=== PATIENT | female | born 1960 | race Caucasian/White ===

== ENCOUNTER 2018-09-16 04:59 | Inpatient (IN) | payer OTHER ==
[2018-09-16] MEDS ORDERED: INSULIN REG, HUMAN 100 UNIT/ML 3 ML VIAL (PYX) SUBCUT ONE ×3 (05:31→23:00)
[2018-09-16] MEDS ORDERED: FENTANYL CITRATE INJ/PF 100 MCG/2 ML AMPUL IV ONE (05:31)
[2018-09-16 05:40] LABS: HEMATOCRIT 21.5 % (36.0-47.0); MEAN CORPUSCULAR HEMOGLOBIN 21.1 pg (27.0-33.4); MEAN CORPUSCULAR HGB CONC 28.6 g/dL (32.0-36.0); MEAN CORPUSCULAR VOLUME 74 fl (80-97); RED CELL DISTRIBUTION WIDTH 25.6 % (11.5-14.0); WHITE BLOOD COUNT 9.8 10^3/uL (4.0-10.5)
[2018-09-16 05:43] LABS: ALANINE AMINOTRANSFERASE 20 U/L (9-52); ALBUMIN 2.8 g/dL (3.5-5.0); ALKALINE PHOSPHATASE 92 U/L (38-126); ANION GAP 13 (5-19); ASPARTATE AMINO TRANSFERASE 20 U/L (14-36); BILIRUBIN,DIRECT 0.3 mg/dL (0.0-0.4); BILIRUBIN,TOTAL 0.6 mg/dL (0.2-1.3); BLOOD UREA NITROGEN 33 mg/dL (7-20); CALCIUM 8.2 mg/dL (8.4-10.2); CARBON DIOXIDE 25 mmol/L (22-30); CHLORIDE 101 mmol/L (98-107); POTASSIUM 4.8 mmol/L (3.6-5.0); TOTAL PROTEIN 5.1 g/dL (6.3-8.2)
[2018-09-16 05:53] LABS: GLUCOSE 407 mg/dL (75-110)
[2018-09-16 06:11] LABS: PLATELET COUNT 45 10^3/uL (150-450)
[2018-09-16 06:17] LABS: ABSOLUTE LYMPHOCYTES# (MANUAL) 2.5 10^3/uL (0.5-4.7); ABSOLUTE MONOCYTES # (MANUAL) 2.6 10^3/uL (0.1-1.4); BAND NEUTROPHILS % (MANUAL) 1 % (3-5); BASOPHILS % (MANUAL) 0 % (0-2); EOSINOPHILS % (MANUAL) 0 % (0-6); LYMPHOCYTES % (MANUAL) 17 % (13-45); MONOCYTES % (MANUAL) 27 % (3-13); NUCLEATED RED BLOOD CELLS 5 /100 WBC (0); SEGMENTED NEUTROPHILS % (MAN) 28 % (42-78); TOTAL CELLS COUNTED 100
--- NOTE | 2018-09-16 06:18 | RADIOLOGY REPORT (SQ) ---
EXAM DESCRIPTION: X-ray single view chest. CLINICAL HISTORY: 58 years Female, chest pain COMPARISON: 07/29/2015 TECHNIQUE: Single portable view of the chest performed on 09/16/2018 at 5:48 AM FINDINGS: The lungs are well expanded and are clear. There is no evidence of a pneumothorax. The cardiac silhouette is normal in size and configuration. The mediastinal contours are normal. No acute osseous abnormality is identified. There are remote postsurgical changes of the lower cervical spine. No focal soft tissue abnormalities are seen. Lines and tubes: None. There are overlying teletypesetter monitor leads. IMPRESSION: No evidence of acute intrathoracic disease. No significant change since the prior study.
[2018-09-16 06:20] LABS: ANISOCYTOSIS 3+; HYPOCHROMASIA 1+; PLATELET COMMENT DECREASED; POIKILOCYTOSIS 1+; POLYCHROMASIA 1+; TOXIC GRANULATION SLIGHT; TOXIC VACUOLATION PRESENT
[2018-09-16 06:24] LABS: IMMATURE MONONUCLEAR% (MANUAL) 7 % (0); METAMYELOCYTES % (MANUAL) 6 % (0); MYELOCYTES % (MANUAL) 4 % (0); PROMYELOCYTES % (MANUAL) 2 % (0)
[2018-09-16 06:26] LABS: HEMOGLOBIN 6.1 g/dL (12.0-15.5)
[2018-09-16] MEDS ORDERED: ONDANSETRON HCL INJ/PF 4 MG/2 ML SDV IV ONE (06:36)
[2018-09-16] MEDS ORDERED: MORPHINE SULFATE 10 MG/ML INJ IV ONE ×2 (06:36→09:15)
--- NOTE | 2018-09-16 07:46 | EKG REPORT ---
SEVERITY:- NORMAL ECG - SINUS RHYTHM : Confirmed by: Guillaume Victor MD 16-Sep-2018 07:45:25
[2018-09-16] MEDS ORDERED: NORMAL SALINE 250 ML IV PRN (07:54)
[2018-09-16 08:21] LABS: RETICULOCYTE COUNT (AUTO) 2.75 % (0.66-2.85)
[2018-09-16 08:34] LABS: IRON(TIBC) 13.8 ug/dL (37-170)
--- NOTE | 2018-09-16 08:44 | PDOC CONSULTATION ---
Consultation Consult Date: 09/16/18 Consult reason:: Hematology/Oncology consultation was requested for patient with pancytopenia and history of essential thrombocytosis. History of Present Illness Admission Date/PCP: Burt BRODY History of Present Illness: LILIA CHAPA is a 58 year old female who was diagnosed with JAK2 negative Essential thrombocythemia in 2010. She underwent bone marrow biopsies in 03/2017 and 01/2018 both of which showed essential thrombocythemia with increased blasts (5% or less). She was started on Hydrea in 2011 and had been maintained on this with good results. On 08/15/2018 her CBC showed WBC 6.0, HGB 8.1 and PLT 386. Ferritin was 545. In 2017, she began having recurrent fevers and moving joint/bone pains. She was also found to have a splenic hypodensity. She has been referred to rheumatology for further testing, but has not been able to see them yet. She presented to the ED with 24 hour history of severe chest pain and dyspnea. No nausea, but "fullness" in her stomach. No dysuria. Morphine has not yet helped her pain. Her CBC today shows pancytopenia with immature forms. Past Medical History Cardiac Medical History: Reports: Hyperlipidema, Hypertension Denies: Coronary Artery Disease, Myocardial Infarction Pulmonary Medical History: Denies: Asthma, Bronchitis, Chronic Obstructive Pulmonary Disease (COPD), Pneumonia Neurological Medical History: Denies: Seizures Endocrine Medical History: Reports: Diabetes Mellitus Type 2 Musculoskeltal Medical History: Denies: Arthritis Hematology: Reports: Anemia Past Surgical History Past Surgical History: Reports: Section, Cholecystectomy, Orthopedic Surgery - neck, Other - Partial hemicolectomy for suspicious polyps Social History Lives with: Spouse/Significant other Smoking Status: Current Every Day Smoker Amount of Alcoholic Beverages Per Day: None for 20 years Hx Recreational Drug Use: No Past Social History Note: with 3 kids. Family History Family History: None Parental Family History Reviewed: Yes - Paternal GF with cancer. Mother still living. Father Children Family History Reviewed: No Sibling(s) Family History Reviewed.: Yes Medication/Allergy Home Medications: Aspirin [Aspirin EC] 81 mg PO QHS 05/21/17 Atorvastatin Calcium [Lipitor 40 mg Tablet] 40 mg PO QHS 05/21/17 Ferrous Sulfate [Ferosul] 325 mg PO QHS 05/21/17 Hydroxyurea 4 tab PO QHS 05/21/17 Insulin Aspart [Novolog Flexpen] 0 unit SUBCUT .SLD SCALE 05/21/17 Insulin Glargine,Hum.rec.anlog [Lantus] 55 unit SQ QHS 05/21/17 Iron/C/Folic Acd/Mv Cmb11/Calc [Ferrex 28 Tablet] 1 each PO QHS 05/21/17 Omeprazole 40 mg PO QHS 05/21/17 Telmisartan [Micardis] 80 mg PO QHS 05/21/17 Tramadol HCl 1 - 2 tab PO PRN PRN 05/21/17 Verapamil HCl [Verelan] 120 mg PO QHS 05/21/17 Allergies/Adverse Reactions: NSAIDS (Non-Steroidal Anti-Inflamma [Nsaids] Allergy (Verified 05/21/17 11:24) Difficulty breathing Review of Systems Constitutional: PRESENT: fever(s). ABSENT: weight gain, weight loss Eyes: ABSENT: visual disturbances Ears: ABSENT: hearing changes Nose, Mouth, and Throat: ABSENT: sore throat Cardiovascular: PRESENT: chest pain Respiratory: PRESENT: dyspnea Gastrointestinal: PRESENT: abdominal pain. ABSENT: constipation, vomiting Genitourinary: ABSENT: dysuria, hematuria Musculoskeletal: PRESENT: back pain Integumentary: ABSENT: rash Neurological: PRESENT: weakness Physical Exam Vital Signs: Temp Pulse Resp BP Pulse Ox 98.4 F 92 29 H 112/65 97 09/16/18 04:59 09/16/18 04:59 09/16/18 08:00 09/16/18 08:00 09/16/18 08:00 Intake & Output 09/15/18 09/16/18 09/17/18 06:59 06:59 06:59 Weight 68.492 kg General appearance: PRESENT: well-developed, well-nourished Exam: 58 year old female. Head exam: PRESENT: atraumatic, normocephalic Eye exam: PRESENT: EOMI Mouth exam: PRESENT: tongue midline Neck exam: ABSENT: lymphadenopathy, tenderness Respiratory exam: PRESENT: clear to auscultation svetlana, unlabored Cardiovascular exam: PRESENT: RRR GI/Abdominal exam: PRESENT: soft. ABSENT: tenderness Extremities exam: ABSENT: pedal edema Neurological exam: PRESENT: alert, awake Psychiatric exam: PRESENT: appropriate affect Skin exam: PRESENT: normal color Results Laboratory Results: 09/16/18 05:04 09/16/18 05:04 09/16/18 09/16/18 09/16/18 05:04 05:04 05:04 WBC 9.8 RBC 2.90 L Hgb 6.1 L Hct 21.5 L MCV 74 L MCH 21.1 L MCHC 28.6 L RDW 25.6 H Plt Count 45 L Seg Neutrophils % Not Reportable Lymphocytes % Not Reportable Monocytes % Not Reportable Eosinophils % Not Reportable Basophils % Not Reportable Absolute Neutrophils Not Reportable Absolute Lymphocytes Not Reportable Absolute Monocytes Not Reportable Absolute Eosinophils Not Reportable Absolute Basophils Not Reportable Retic Count (auto) Absolute Retic Sodium 139.0 Potassium 4.8 Chloride 101 Carbon Dioxide 25 Anion Gap 13 BUN 33 H Creatinine 0.72 Est GFR ( Amer) > 60 Est GFR (Non-Af Amer) > 60 Glucose 407 H* Calcium 8.2 L Total Bilirubin 0.6 AST 20 ALT 20 Alkaline Phosphatase 92 C-Reactive Protein 330.4 H Total Protein 5.1 L Albumin 2.8 L Blood Type Antibody Screen 09/16/18 09/16/18 05:04 05:50 WBC RBC Hgb Hct MCV MCH MCHC RDW Plt Count Seg Neutrophils % Lymphocytes % Monocytes % Eosinophils % Basophils % Absolute Neutrophils Absolute Lymphocytes Absolute Monocytes Absolute Eosinophils Absolute Basophils Retic Count (auto) 2.75 Absolute Retic 0.070 Sodium Potassium Chloride Carbon Dioxide Anion Gap BUN Creatinine Est GFR ( Amer) Est GFR (Non-Af Amer) Glucose Calcium Total Bilirubin AST ALT Alkaline Phosphatase C-Reactive Protein Total Protein Albumin Blood Type A POSITIVE Antibody Screen NEGATIVE 09/16/18 05:04 Troponin I 0.039 Impressions: Chest X-Ray 09/16/18 05:31 IMPRESSION: No evidence of acute intrathoracic disease. No significant change since the prior study. Assessment & Plan - Diagnosis (1) Pancytopenia Is this a current diagnosis for this admission?: Yes Plan: New. I examined peripheral blood smear and there were microcytic RBCs with moderate poikilocytosis, some schistocytes. WBCs with Immature forms and possible blasts. nucleated RBCs. Will transfuse 2 units pRBC. Patient needs bone marrow biopsy. I will check for severe B12 deficiency as well. I am concerned that this could be acute leukemia evolved from her thrombocythemia. I strongly recommend transfer to [facility] for Bone Marrow, as we would not be able to have results for 5-7 days from this procedure. HOLD hydrea. (2) Fever Is this a current diagnosis for this admission?: Yes Plan: Fever of unknown origin going on since May. Infectious disease consult would be very helpful. We do not have this available here. Again, transfer to [facility] urgently would help with this. Will check STEFANIE, RF, ESR. Her CRP is quite high. (3) Chest pain Is this a current diagnosis for this admission?: Yes Plan: EKG was normal. She has been given morphine for the pain. Hopefully the blood transfusion will help this. - Plan Summary Plan Summary: I will continue to follow her here, but hopefully, Heme/Onc bed will be found at [facility] today.
[2018-09-16 09:39] LABS: PHOSPHORUS 4.8 mg/dL (2.5-4.5); URIC ACID 6.9 mg/dL (2.5-7.5)
[2018-09-16 09:42] LABS: APPEARANCE,URINE SLIGHTLY-CLOUDY; BILIRUBIN,URINE NEGATIVE (NEGATIVE); COLOR,URINE YELLOW; GLUCOSE, URINE >=500 mg/dL (NEGATIVE); KETONES,URINE 20 mg/dL (NEGATIVE); LEUKOCYTE ESTERASE,URINE NEGATIVE (NEGATIVE); NITRITE,URINE NEGATIVE (NEGATIVE); PROTEIN,URINE NEGATIVE (NEGATIVE); UROBILINOGEN,URINE NEGATIVE mg/dL (<2.0)
[2018-09-16 09:43] LABS: FOLATE > 20.00 ng/mL (>2.76)
[2018-09-16 09:50] LABS: INTERNATIONAL RATION (INR) 1.14; PROTHROMBIN TIME 15.2 SEC (11.4-15.4)
[2018-09-16] MEDS ORDERED: ONDANSETRON HCL INJ/PF 4 MG/2 ML SDV IV PRN (11:54)
[2018-09-16] MEDS ORDERED: ALBUTEROL SULFATE 0.083% NEB 2.5 MG/3 ML AMPUL NEB PRN (11:54)
[2018-09-16] MEDS ORDERED: VANCOMYCIN HCL 0 MG in DEXTROSE 5%-WATER 250 ML IV NR (12:15)
[2018-09-16] MEDS: ACETAMINOPHEN 325 MG TABLET PO PRN (12:23)
--- NOTE | 2018-09-16 13:18 | Operative Report ---
Operative Report DATE OF SURGERY: 09/16/18 Operative Report: After informed consent was obtained, patient was prepped and draped in sterile fashion. Left posterior iliac crest was anesthetized using plain lidocaine. Bone marrow aspirate was obtained with Jamshidi aspirate needle followed by core biopsy using Jamshidi biopsy needle. Patient tolerated the procedure well with only some pain. No excessive bleeding was seen. Sterile pressure dressing was applied. PREOPERATIVE DIAGNOSIS: pancytopenia POSTOPERATIVE DIAGNOSIS: pancytopenia OPERATION: Bone Marrow aspiration and biopsy SURGEON: AISSATOU BARRON ANESTHESIA: Local - 10 cc 1% plain lidocaine TISSUE REMOVED OR ALTERED: core biopsy and 5 mL aspirate COMPLICATIONS: There were no immediate complications. ESTIMATED BLOOD LOSS: None
[2018-09-16] MEDS ORDERED: METHYLPREDNISOLONE INJ 40 MG/1 ML SDV IV ONE (13:56)
[2018-09-16] MEDS ORDERED: VANCOMYCIN HCL 1,500 MG in DEXTROSE 5%-WATER 250 ML IV ONE (14:00)
[2018-09-16] MEDS ORDERED: INSULIN LISPRO 100 UNIT/ML 3 ML VIAL SUBCUT ONE (15:25)
[2018-09-16] MEDS ORDERED: DEXTROSE 40% GEL 15 GM TUBE PO PRN ×2 (15:25)
[2018-09-16] MEDS ORDERED: GLUCAGON,HUMAN RECOMB 1 MG INJ IM PRN (15:25)
[2018-09-16] MEDS ORDERED: DEXTROSE 50%-WATER 25 GM/50 ML DISP.SYRIN IV PRN ×2 (15:25)
[2018-09-16] MEDS ORDERED: INSULIN LISPRO 100 UNIT/ML 3 ML VIAL SUBCUT SCH (16:00)
[2018-09-16] MEDS: MEROPENEM 500 MG in NORMAL SALINE 50 ML IV SCH ×2 (16:29→22:06)
[2018-09-16] MEDS: HYDROMORPHONE HCL INJ/PF 2 MG/ML AMPULE IV PRN (18:22)
[2018-09-16] MEDS: LANSOPRAZOLE 15 MG TAB.RAP.DR PO SCH (20:24)
[2018-09-16] MEDS ORDERED: LOSARTAN POTASSIUM 50 MG TABLET PO SCH (22:00)
[2018-09-16] MEDS ORDERED: VERAPAMIL HCL 120 MG TABLET.SA PO SCH (22:00)
[2018-09-16] MEDS ORDERED: FERROUS SULFATE 325 MG TABLET PO SCH (22:00)
[2018-09-16] MEDS ORDERED: VANCOMYCIN HCL 1,500 MG in NORMAL SALINE 250 ML IV ONE (22:00)
[2018-09-16] MEDS ORDERED: [UNRECOGNIZED DRUG - OTHER] PO SCH (22:00)
[2018-09-16] MEDS ORDERED: ATORVASTATIN CALCIUM 40 MG TABLET PO SCH (22:00)
[2018-09-16] MEDS ORDERED: IRON PO SCH (22:00)
[2018-09-16] MEDS ORDERED: CALC PO SCH (22:00)
[2018-09-16] MEDS ORDERED: INSULIN GLARGINE,HUM.REC.ANLOG 1,000 UNIT/10 ML UNIT SUBCUT SCH ×2 (22:00)
[2018-09-16] MEDS ORDERED: INSULIN GLARGINE,HUM.REC.ANLOG 300 UNIT/3 ML INSULN.PEN SUBCUT ONE (23:00)
[2018-09-16] MEDS ORDERED: INSULIN GLARGINE,HUM.REC.ANLOG 1,000 UNIT/10 ML UNIT SUBCUT ONE (23:00)
[2018-09-16] MEDS ORDERED: VERAPAMIL HCL 120 MG TABLET.SA PO ONE (23:01)
[2018-09-16] MEDS: INSULIN LISPRO 100 UNIT/ML 3 ML VIAL SUBCUT SCH (23:03)
[2018-09-16] MEDS: INSULIN GLARGINE,HUM.REC.ANLOG 300 UNIT/3 ML INSULN.PEN SUBCUT SCH (23:03)
[2018-09-16] MEDS: METHYLPREDNISOLONE INJ 125 MG/2 ML SDV IV SCH (23:04)
[2018-09-16] MEDS ORDERED: INSULIN REG, HUMAN 100 UNIT/ML 3 ML VIAL (PYX) IV SCH ×3 (23:20→23:59)
[2018-09-16] MEDS ORDERED: INSULIN REG, HUMAN 100 UNIT/ML 3 ML VIAL (PYX) IV ONE (23:45)
[2018-09-17] MEDS: HYDROMORPHONE HCL INJ/PF 2 MG/ML AMPULE IV PRN ×4 (00:32→16:17)
[2018-09-17] MEDS: MEROPENEM 500 MG in NORMAL SALINE 50 ML IV SCH ×2 (05:23→13:32)
[2018-09-17] MEDS ORDERED: VANCOMYCIN HCL 1,000 MG in DEXTROSE 5%-WATER 250 ML IV SCH ×2 (06:00→10:00)
[2018-09-17] MEDS: INSULIN LISPRO 100 UNIT/ML 3 ML VIAL SUBCUT SCH ×2 (08:21→12:07)
[2018-09-17 08:28] LABS: HEMATOCRIT 23.4 % (36.0-47.0); MEAN CORPUSCULAR HEMOGLOBIN 23.5 pg (27.0-33.4); MEAN CORPUSCULAR HGB CONC 30.7 g/dL (32.0-36.0); MEAN CORPUSCULAR VOLUME 77 fl (80-97); RED BLOOD COUNT 3.05 10^6/uL (3.72-5.28); RED CELL DISTRIBUTION WIDTH 26.3 % (11.5-14.0); WHITE BLOOD COUNT 10.2 10^3/uL (4.0-10.5)
[2018-09-17 08:56] LABS: ANION GAP 8 (5-19); BLOOD UREA NITROGEN 57 mg/dL (7-20); CALCIUM 8.3 mg/dL (8.4-10.2); CARBON DIOXIDE 24 mmol/L (22-30); CHLORIDE 101 mmol/L (98-107); POTASSIUM 5.9 mmol/L (3.6-5.0)
[2018-09-17 09:06] LABS: GLUCOSE 447 mg/dL (75-110)
[2018-09-17 09:14] LABS: ABSOLUTE LYMPHOCYTES# (MANUAL) 2.9 10^3/uL (0.5-4.7); ABSOLUTE MONOCYTES # (MANUAL) 1.2 10^3/uL (0.1-1.4); ABSOLUTE NEUTROPHILS# (MANUAL) 5.6 10^3/uL (1.7-8.2); BAND NEUTROPHILS % (MANUAL) 1 % (3-5); BASOPHILS % (MANUAL) 0 % (0-2); EOSINOPHILS % (MANUAL) 0 % (0-6); IMMATURE MONONUCLEAR% (MANUAL) 5 % (0); LYMPHOCYTES % (MANUAL) 28 % (13-45); METAMYELOCYTES % (MANUAL) 3 % (0); MONOCYTES % (MANUAL) 12 % (3-13); MYELOCYTES % (MANUAL) 1 % (0); NUCLEATED RED BLOOD CELLS 1 /100 WBC (0); PROMYELOCYTES % (MANUAL) 2 % (0); SEGMENTED NEUTROPHILS % (MAN) 48 % (42-78); TOTAL CELLS COUNTED 100; TOXIC GRANULATION 2+
[2018-09-17 09:15] LABS: ANISOCYTOSIS 3+; HYPOCHROMASIA SLIGHT; OVALOCYTES SLIGHT; PLATELET COMMENT DECREASED; PLATELET GIANT PRESENT; PLATELET LARGE PRESENT; POIKILOCYTOSIS SLIGHT; POLYCHROMASIA SLIGHT
[2018-09-17 09:16] LABS: PLATELET COUNT 35 10^3/uL (150-450)
[2018-09-17 09:22] LABS: HEMOGLOBIN 7.2 g/dL (12.0-15.5)
[2018-09-17] MEDS: METHYLPREDNISOLONE INJ 125 MG/2 ML SDV IV SCH (09:53)
[2018-09-17] MEDS: INSULIN GLARGINE,HUM.REC.ANLOG 300 UNIT/3 ML INSULN.PEN SUBCUT SCH (09:54)
[2018-09-17] MEDS: LANSOPRAZOLE 15 MG TAB.RAP.DR PO SCH (09:56)
[2018-09-17] MEDS ORDERED: VANCOMYCIN HCL 1,000 MG in NORMAL SALINE 250 ML IV SCH (10:00)
[2018-09-17] MEDS ORDERED: ALLOPURINOL 300 MG TABLET PO SCH (10:00)
[2018-09-17] MEDS ORDERED: FENTANYL 50 MCG/HR PATCH.TD72 TD ONE (11:12)
[2018-09-17] MEDS ORDERED: DIPHENHYDRAMINE HCL 25 MG CAPSULE PO PRN (11:34)
[2018-09-17] MEDS ORDERED: ACETAMINOPHEN 325 MG TABLET PO PRN (11:34)
[2018-09-17] MEDS ORDERED: SODIUM POLYSTYRENE SULFONATE 15 GM/60 ML PO SCH (12:00)
--- NOTE | 2018-09-17 12:09 | PDOC PROGRESS REPORT ---
Subjective Progress Note for:: 09/17/18 Subjective:: Patient awake, but still complaining of pain all over, especially with movements. She ate a good breakfast. No nausea. Good BM this morning. ROS: No headache. Fevers continue off and on per patient. Reason For Visit: POSSIBLE NEW ACUTE LEUKEMIA,THROMBOCYTOPENIA, Physical Exam Vital Signs: Temp Pulse Resp BP Pulse Ox 97.6 F 73 23 H 117/59 L 97 09/17/18 08:00 09/17/18 08:00 09/17/18 08:00 09/17/18 08:00 09/17/18 08:00 Intake & Output 09/16/18 09/17/18 09/18/18 06:59 06:59 06:59 Intake Total 2900 Output Total 900 Balance 2000 Weight 68.492 kg 73.1 kg General appearance: PRESENT: well-developed, well-nourished, other - diaphoretic Head exam: PRESENT: normocephalic Respiratory exam: PRESENT: unlabored Cardiovascular exam: PRESENT: RRR GI/Abdominal exam: PRESENT: soft, tenderness Extremities exam: PRESENT: +1 edema Neurological exam: PRESENT: alert, awake Psychiatric exam: PRESENT: other - crying in pain with any movement. Skin exam: PRESENT: pallor Results Laboratory Results: 09/17/18 07:57 09/17/18 07:27 09/16/18 09/17/18 09/17/18 05:50 07:27 07:57 WBC 10.2 RBC 3.05 L Hgb 7.2 L Hct 23.4 L MCV 77 L MCH 23.5 L MCHC 30.7 L RDW 26.3 H Plt Count 35 L Seg Neutrophils % Not Reportable Lymphocytes % Not Reportable Monocytes % Not Reportable Eosinophils % Not Reportable Basophils % Not Reportable Absolute Neutrophils Not Reportable Absolute Lymphocytes Not Reportable Absolute Monocytes Not Reportable Absolute Eosinophils Not Reportable Absolute Basophils Not Reportable Sodium 133.0 L Potassium 5.9 H Chloride 101 Carbon Dioxide 24 Anion Gap 8 BUN 57 H Creatinine 0.83 Est GFR ( Amer) > 60 Est GFR (Non-Af Amer) > 60 Glucose 447 H* Calcium 8.3 L Blood Type A POSITIVE Antibody Screen NEGATIVE 09/16/18 05:04 Troponin I 0.039 Impressions: Chest X-Ray 09/16/18 05:31 IMPRESSION: No evidence of acute intrathoracic disease. No significant change since the prior study. Assessment & Plan - Diagnosis (1) Pancytopenia Is this a current diagnosis for this admission?: Yes Plan: Peripheral blood smear with blasts and immature forms. Bone Marrow biopsy was performed on 09/16/18. This was sent to specialty lab, awaiting results. 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 Will continue to try to support with blood transfusions. However, all blood products should now be irradiated and leukopoor and we do not have these readily available. I have reached out to [facility]. She has been accepted for transfer, but it is not felt that they will have a bed for her for 3-4 days. I will now try to reach out to other facilities to see if she can be transferred to a more appropriate level of care. (2) Fever Is this a current diagnosis for this admission?: Yes Plan: Continue Tylenol PRN. Cultures have been drawn. Will continue Merrepenum and Vanc for now. Her ANC is 5.6 today. (3) Chest pain Is this a current diagnosis for this admission?: Yes Plan: She is receiving Duragesic 50 mcg patch as well as Morphine PRN. Will continue to try to control pain. - Time Time Spent with patient: 35 or more minutes
[2018-09-17 12:59] LABS: PARTIAL THROMBOPLASTIN TIME 29.4 SEC (23.5-35.8)
--- NOTE | 2018-09-17 15:59 | PDOC TRANSFER SUMMARY ---
General Admission Date/PCP: 09/16/18 12:54 Burt BRODY Admission Date: 09/16/18 Transfer Date: 09/17/18 - Transfer Diagnosis (1) Chest pain Is this a current diagnosis for this admission?: Yes (2) Anemia Is this a current diagnosis for this admission?: Yes (3) Fever of unknown origin Is this a current diagnosis for this admission?: Yes (4) Thrombocytopenia Is this a current diagnosis for this admission?: Yes (5) Diabetes mellitus Is this a current diagnosis for this admission?: Yes (6) Hypertension Is this a current diagnosis for this admission?: Yes - Transfer Medications Home Medications: Aspirin [Aspirin EC] 81 mg PO QHS 05/21/17 Atorvastatin Calcium [Lipitor 40 mg Tablet] 40 mg PO QHS 05/21/17 Ferrous Sulfate [Ferosul] 325 mg PO QHS 05/21/17 Hydroxyurea 1,000 mg PO Q48H 05/21/17 Insulin Aspart [Novolog Flexpen] 0 unit SUBCUT .SLD SCALE 05/21/17 Insulin Glargine,Hum.rec.anlog [Lantus] 48 unit SQ QHS 05/21/17 Iron/C/Folic Acd/Mv Cmb11/Calc [Ferrex 28 Tablet] 1 each PO QHS 05/21/17 Omeprazole 40 mg PO QHS 05/21/17 Telmisartan [Micardis] 80 mg PO QHS 05/21/17 Hydroxyurea [Hydrea 500 Mg Capsule] 500 mg PO Q48H 09/16/18 Transfer Medications: Current Medications Acetaminophen (Tylenol 325 Mg Tablet) 650 mg PO Q4HP PRN PRN Reason: FOR PAIN OR TEMP Stop: 10/16/18 11:53 Last Admin: 09/16/18 12:23 Dose: 650 mg Documented by: Acetaminophen (Tylenol 325 Mg Tablet) 650 mg PO .TRANSFUSION PRN PRN Reason: NOT A PRN MED Stop: 09/17/18 23:59 Albuterol (Ventolin 0.083% Neb 2.5 Mg/3 Ml Ampul) 2.5 mg NEB RTQ4HP PRN PRN Reason: SHORTNESS OF BREATH Stop: 10/16/18 11:53 Allopurinol (Zyloprim 300 Mg Tablet) 300 mg PO DAILY DOREEN Stop: 10/17/18 09:59 Last Admin: 09/17/18 13:21 Dose: 300 mg Documented by: Atorvastatin Calcium (Lipitor 40 Mg Tablet) 40 mg PO QHS COUNT INCLUDES THE [facility] Stop: 10/16/18 21:59 Last Admin: 09/16/18 23:02 Dose: 40 mg Documented by: Dextrose (Dextrose Inj 50% Syringe (25 Gm/50 Ml)) 12.5 gm IV PRN PRN; Protocol PRN Reason: FOR BG 50-69 IN ALERT PATIENT Stop: 10/16/18 15:24 Dextrose (Dextrose Inj 50% Syringe (25 Gm/50 Ml)) 25 gm IV PRN PRN; Protocol PRN Reason: PER PROTOCOL Stop: 10/16/18 15:24 Diphenhydramine HCl (Benadryl 25 Mg Capsule) 25 mg PO .TRANSFUSION PRN PRN Reason: THIS MED IS NOT "PRN" Stop: 09/17/18 23:59 Fentanyl (Duragesic 50 Mcg/Hr Transdermal Patch) 1 each TD Q3DAYS COUNT INCLUDES THE [facility] Stop: 09/27/18 09:59 Glucagon (Glucagen Inj 1 Mg Vial) 1 mg IM PRN PRN; Protocol PRN Reason: Evaluate for BG < 70 Stop: 10/16/18 15:24 Glucose (Glutose 40% Gel 15 Gm Tube) 15 gm PO PRN PRN; Protocol PRN Reason: FOR BG 50-69 IN ALERT PATIENT Stop: 10/16/18 15:24 Glucose (Glutose 40% Gel 15 Gm Tube) 30 gm PO PRN PRN; Protocol PRN Reason: FOR BG < 50 IN ALERT PATIENT Stop: 10/16/18 15:24 Hydromorphone HCl (Dilaudid Inj/Pf 2 Mg/Ml Ampule) 1 mg IV Q4HP PRN PRN Reason: FOR PAIN Stop: 09/24/18 12:28 Last Admin: 09/17/18 13:22 Dose: 1 mg Documented by: Meropenem 500 mg/ Sodium (Chloride) 50 mls @ 100 mls/hr IV Q8 COUNT INCLUDES THE [facility] Stop: 09/23/18 13:59 Last Infusion: 09/17/18 14:02 Dose: Infused Documented by: Vancomycin HCl 1,000 mg/ (Sodium Chloride) 250 mls @ 166.667 mls/hr IV Q12 COUNT INCLUDES THE [facility] Stop: 09/24/18 09:59 Last Admin: 09/17/18 09:55 Dose: 166 ml/hr, 166 mls/hr Documented by: Insulin Glargine (Lantus Insulin Inj 300 Unit/3 Ml Pen) 45 unit SUBCUT Q12 COUNT INCLUDES THE [facility] Stop: 10/16/18 21:59 Last Admin: 09/17/18 09:54 Dose: 45 units Documented by: Insulin Human Lispro (Humalog Insulin 100 Unit/1 Ml 3 Ml Vial) 0 - 12 unit SUBCUT ACHS COUNT INCLUDES THE [facility]; Protocol Stop: 10/16/18 15:59 Last Admin: 09/17/18 12:07 Dose: 12 unit Documented by: Lansoprazole (Prevacid 15 Mg Odt Tablet) 15 mg PO BID COUNT INCLUDES THE [facility] Stop: 10/16/18 17:59 Last Admin: 09/17/18 09:56 Dose: 15 mg Documented by: Losartan Potassium (Cozaar 50 Mg Tablet) 100 mg PO QHS COUNT INCLUDES THE [facility] Stop: 10/16/18 21:59 Last Admin: 09/16/18 23:02 Dose: 100 mg Documented by: Methylprednisolone Sodium Succinate (Solu-Medrol Inj/Pf 125 Mg/2 Ml Sdv) 60 mg IV Q12 COUNT INCLUDES THE [facility] Stop: 10/16/18 21:59 Last Admin: 09/17/18 09:53 Dose: 60 mg Documented by: Ondansetron HCl (Zofran Inj/Pf 4 Mg/2 Ml Sdv) 4 mg IV Q4HP PRN PRN Reason: FOR NAUSEA/VOMITING Stop: 10/16/18 11:53 Patient Own Medication (Iron/C/Folic Acd/Mv Cmb11/Calc [Ferrex 28 Tablet]) 1 each PO QHS COUNT INCLUDES THE [facility] Stop: 10/16/18 21:59 Sodium Chloride (Saline Flush 2.5 Ml Monoject Prefil Syrin) 2.5 ml IV Q8 COUNT INCLUDES THE [facility] Stop: 10/16/18 13:59 Last Admin: 09/17/18 14:42 Dose: 2.5 ml Documented by: Sodium Polystyrene Sulfonate (Kayexalate 15 Gm/60 Ml Susp 60 Ml) 30 gm PO Q6 COUNT INCLUDES THE [facility] Stop: 09/18/18 11:59 Last Admin: 09/17/18 12:07 Dose: 30 gm Documented by: Verapamil HCl (Calan Sr 120 Mg Tablet.Sa) 120 mg PO QHS COUNT INCLUDES THE [facility] Stop: 10/16/18 21:59 Last Admin: 09/16/18 23:03 Dose: 120 mg Documented by: - Allergies Allergies/Adverse Reactions: NSAIDS (Non-Steroidal Anti-Inflamma [Nsaids] Allergy (Verified 09/16/18 15:39) Difficulty breathing Hospital Course Hospital Course: This is a very pleasant 58 years old female patient with past medical history of hyperlipidemia, hypertension, anemia, type 2 diabetes mellitus presented with chief complaint of chest pain. Her EKG and troponin is nonrevealing. Her blood work shows anemia with hemoglobin of 6.1 for which she is transfused 2 units of blood and her hemoglobin trended up to 7.2. Of note patient was diagnosed with JAK2 negative essential thrombocythemia in 2010. She underwent bone marrow biopsy this in March 2017 and January 2018 both of which showed essential thrombocythemia with increased blasts(5% or less). She was started on Hydrea in 2011 and had been maintained on this medication with good results. Her current blood work shows thrombocytopenia with platelet count of 35. Patient endorses intermittent fever which is followed by excruciating pain involving the thigh arm muscles and her hip. She says the pain is migratory. Morning I seen patient resting in bed. She complains of pain at the bone marrow site. She failed to respond to IV morphine so I switched her to fentanyl patch and she reports this improvement. Physical Exam Vital Signs: Temp Pulse Resp BP Pulse Ox 97.9 F 75 20 117/57 L 100 09/17/18 12:00 09/17/18 12:00 09/17/18 12:00 09/17/18 12:00 09/17/18 12:00 Intake & Output 09/16/18 09/17/18 09/18/18 06:59 06:59 06:59 Intake Total 2900 50 Output Total 900 Balance 2000 50 Weight 68.492 kg 73.1 kg General appearance: PRESENT: mild distress Head exam: PRESENT: atraumatic, normocephalic Eye exam: PRESENT: conjunctiva pink Mouth exam: PRESENT: dry mucosa Respiratory exam: PRESENT: clear to auscultation svetlana. ABSENT: rales, rhonchi, wheezes Cardiovascular exam: PRESENT: RRR. ABSENT: diastolic murmur, rubs, systolic murmur GI/Abdominal exam: PRESENT: normal bowel sounds, soft. ABSENT: distended, guarding, mass, organolmegaly, rebound, tenderness Extremities exam: PRESENT: full ROM. ABSENT: calf tenderness, clubbing, pedal edema Neurological exam: PRESENT: alert, awake, oriented to time, oriented to situation Results Laboratory Results: 09/17/18 07:57 09/17/18 07:27 09/16/18 09/17/18 09/17/18 05:50 07:27 07:57 WBC 10.2 RBC 3.05 L Hgb 7.2 L Hct 23.4 L MCV 77 L MCH 23.5 L MCHC 30.7 L RDW 26.3 H Plt Count 35 L Seg Neutrophils % Not Reportable Lymphocytes % Not Reportable Monocytes % Not Reportable Eosinophils % Not Reportable Basophils % Not Reportable Absolute Neutrophils Not Reportable Absolute Lymphocytes Not Reportable Absolute Monocytes Not Reportable Absolute Eosinophils Not Reportable Absolute Basophils Not Reportable Sodium 133.0 L Potassium 5.9 H Chloride 101 Carbon Dioxide 24 Anion Gap 8 BUN 57 H Creatinine 0.83 Est GFR ( Amer) > 60 Est GFR (Non-Af Amer) > 60 Glucose 447 H* Calcium 8.3 L Blood Type A POSITIVE Antibody Screen NEGATIVE 09/16/18 05:04 Troponin I 0.039 Impressions: Chest X-Ray 09/16/18 05:31 IMPRESSION: No evidence of acute intrathoracic disease. No significant change since the prior study.
[2018-09-17] MEDS ORDERED: INSULIN LISPRO 100 UNIT/ML 3 ML VIAL SUBCUT ONE (16:15)
[2018-09-17] MEDS: ACETAMINOPHEN 325 MG TABLET PO PRN (16:18)
[2018-09-17 16:32] VITALS: BP 121/59
--- NOTE | 2018-09-19 08:56 | ER Document Report ---
Entered by SANGEETHA RANDALL SCRIBE 09/16/18 0611 Acting as scribe for:LÁZARO AUGUSTIN MD ED General - General Chief Complaint: Chest Pain Stated Complaint: CHEST PAIN Time Seen by Provider: 09/16/18 05:31 Information source: Patient, [facility] Records Notes: 58-year-old female that presents to the emergency department today with complaints of sternal chest wall pain that woke her up from sleeping last night at an unknown time. Patient describes this pain as sharp and reproducible. Patient states her pain is exacerbated with breathing and coughing. Patient mentions that she has a "mass on her spleen" that was found in July [address] scan at [facility]. When asked what the CT was done for the patient states it was a "follow up" but does not elaborate anymore on what this follow up CT scan was for. Patient states at that time she saw a surgeon regarding a splenic biopsy and the "surgeon thought it was rheumatoid arthritis" so follow up was set up with rheumatology and no biopsy was performed. Patient patient was never diagnosed with rheumatoid in the past. Patient states that since this mass was found she has been having "intermittent fevers and high blood sugars." Patient states her normal diabetes medication is 40 units of Lantus at night and a NovoLog sliding scale with meals. Patient states last night she took her 48 units of Lantus and 10 units of NovoLog, her blood sugar at that time was 378. Patient denies any radiation of pain or history of pain like this before. TRAVEL OUTSIDE OF THE [place] IN LAST 30 DAYS: No - Related Data Allergies/Adverse Reactions: NSAIDS (Non-Steroidal Anti-Inflamma [Nsaids] Allergy (Verified 05/21/17 11:24) Difficulty breathing Past Medical History - General Information source: Patient, [facility] Records - Social History Smoking Status: Current Every Day Smoker Cigarette use (# per day): Yes - 1 ppd Lives with: Family Family History: None Patient has suicidal ideation: No Patient has homicidal ideation: No - Medical History Notes: Reports splenic mass "causing fevers and elevated blood sugar" - Past Medical History Cardiac Medical History: Reports: Hx Hypercholesterolemia, Hx Hypertension Endocrine Medical History: Reports: Hx Diabetes Mellitus Type 2 Traumatic Medical History: Reports: Hx Fractures Past Surgical History: Reports: Hx Abdominal Surgery, Hx Breast Surgery, Hx Gynecologic Surgery - ablation, Hx Orthopedic Surgery - neck - Immunizations Hx Diphtheria, Pertussis, Tetanus Vaccination: Yes Review of Systems - Review of Systems Constitutional: No symptoms reported EENT: No symptoms reported Cardiovascular: See HPI, Chest pain Respiratory: See HPI, Cough, Hurts to breathe Gastrointestinal: No symptoms reported Genitourinary: No symptoms reported Female Genitourinary: No symptoms reported Musculoskeletal: No symptoms reported Skin: No symptoms reported Hematologic/Lymphatic: No symptoms reported Neurological/Psychological: No symptoms reported -: Yes All other systems reviewed and negative Physical Exam - Vital signs Vitals: Temp Pulse Resp BP Pulse Ox 98.4 F 92 18 113/55 L 98 09/16/18 04:59 09/16/18 04:59 09/16/18 04:59 09/16/18 04:59 09/16/18 04:59 - Notes Notes: Physical Exam: General: Alert. HEENT: Normocephalic. Atraumatic. PERRL. Extraocular movements intact. Oropharynx clear. Pale conjunctiva. Neck: Supple. Non-tender. Respiratory: No respiratory distress. Sternal costochondral joints are all tender with palpation, coarse and rhonchorous bilaterally consistent with smoking history. Cardiovascular: Regular rate and rhythm. Abdominal: Normal Inspection. Non-tender. No distension. Normal Bowel Sounds. Back: Non-tender. No deformity or step off. Extremities: Moves all four extremities. Upper extremities: Left upper extremity edema. Normal ROM. Lower extremities: Normal inspection. No edema. Normal ROM. Neurological: Normal cognition. AAOx4. Normal speech. Psychological: Normal affect. Normal Mood. Skin: Warm. Dry. Pale. Course - Re-evaluation Re-evalutation: 09/16/18 07:29 The patient is on hydroxyurea for thrombocytosis. Her most recent lab work in our computer system prior to today was on 05/21/2017 and this showed a hemoglobin of 10.6, MCV of 112, and a platelet count 694,000. Today her hemoglobin is 6.1, MCV is 74, and platelet count is 45,000. 09/16/18 10:19 Dr. Chin came to see the patient. She did go to look at the peripheral blood smear, and was concerned the patient has an acute leukemia. She requested I try to transfer the patient to [facility]. I spoke with the hematology oncology transfer physician, whom I think was name to Dr. Mccormack. He reported there are no beds available on the medical service, and there is a quite lengthy waiting list. He stated if we could come up with a definitive leukemia diagnosis, then the patient could possibly be accepted into the cancer wing. I relayed this information to Dr. Chin and she will make some phone calls and plans to do the patient's bone marrow biopsy here. At this time she requests I get the patient admitted to our facility through the hospitalist service. - Vital Signs Vital signs: Temp Pulse Resp BP Pulse Ox 103.1 F H 105 H 33 H 121/62 96 09/16/18 12:21 09/16/18 12:30 09/16/18 12:30 09/16/18 12:30 09/16/18 12:30 - Laboratory Result Diagrams: 09/16/18 05:04 09/16/18 05:04 Laboratory results interpreted by me: 09/16/18 09/16/18 09/16/18 05:04 05:04 05:04 RBC 2.90 L Hgb 6.1 L Hct 21.5 L MCV 74 L MCH 21.1 L MCHC 28.6 L RDW 25.6 H Plt Count 45 L Seg Neuts % (Manual) 28 L Band Neutrophils % 1 L Monocytes % (Manual) 27 H Metamyelocytes % 6 H Myelocytes % 4 H Promyelocytes % 2 H Immature Leukocytes % 7 H Abs Monocytes (Manual) 2.6 H ESR BUN 33 H Glucose 407 H* POC Glucose Hemoglobin A1c % 7.7 H Calcium 8.2 L Phosphorus Iron TIBC Ferritin Lactate Dehydrogenase C-Reactive Protein Total Protein 5.1 L Albumin 2.8 L Vitamin B12 Urine Glucose (UA) Urine Ketones Crossmatch 09/16/18 09/16/18 09/16/18 05:04 05:04 05:04 RBC Hgb Hct MCV MCH MCHC RDW Plt Count Seg Neuts % (Manual) Band Neutrophils % Monocytes % (Manual) Metamyelocytes % Myelocytes % Promyelocytes % Immature Leukocytes % Abs Monocytes (Manual) ESR 99 H BUN Glucose POC Glucose Hemoglobin A1c % Calcium Phosphorus Iron 13.8 L TIBC 190 L Ferritin 659.00 H Lactate Dehydrogenase C-Reactive Protein 330.4 H Total Protein Albumin Vitamin B12 964.0 H Urine Glucose (UA) Urine Ketones Crossmatch 09/16/18 09/16/18 09/16/18 05:04 05:24 05:50 RBC Hgb Hct MCV MCH MCHC RDW Plt Count Seg Neuts % (Manual) Band Neutrophils % Monocytes % (Manual) Metamyelocytes % Myelocytes % Promyelocytes % Immature Leukocytes % Abs Monocytes (Manual) ESR BUN Glucose POC Glucose 476 H* Hemoglobin A1c % Calcium Phosphorus 4.8 H Iron TIBC Ferritin Lactate Dehydrogenase 1004 H C-Reactive Protein Total Protein Albumin Vitamin B12 Urine Glucose (UA) Urine Ketones Crossmatch See Detail 09/16/18 08:46 RBC Hgb Hct MCV MCH MCHC RDW Plt Count Seg Neuts % (Manual) Band Neutrophils % Monocytes % (Manual) Metamyelocytes % Myelocytes % Promyelocytes % Immature Leukocytes % Abs Monocytes (Manual) ESR BUN Glucose POC Glucose Hemoglobin A1c % Calcium Phosphorus Iron TIBC Ferritin Lactate Dehydrogenase C-Reactive Protein Total Protein Albumin Vitamin B12 Urine Glucose (UA) >=500 H Urine Ketones 20 H Crossmatch - Diagnostic Test Radiology reviewed: Image reviewed, Reports reviewed - Chest x-ray is unremarkable and unchanged from prior films. - EKG Interpretation by Id EKG shows normal: Sinus rhythm, [place], Intervals, QRS Complexes, ST-T Waves Rate: Normal - 87 Rhythm: NSR - Consults Dr. Chin Time consulted: 07:25 Consulted provider: will come to ER Dr. Gao Time consulted: 10:55 Consulted provider: will come to ER Critical Care Note - Critical Care Note Total time excluding time spent on procedures (mins): 40 Discharge - Discharge Clinical Impression: Thrombocytopenia, Myeloproliferative disorder, Anterior chest wall pain Anemia Qualifiers: Anemia type: unspecified type Qualified Code(s): D64.9 - Anemia, unspecified Fever Qualifiers: Fever type: unspecified Qualified Code(s): R50.9 - Fever, unspecified Condition: Stable Disposition: ADMITTED INPATIENT Admitting Provider: Hospitalist Unit Admitted: Medical Floor Scribe Attestation: 09/16/18 07:00 I personally performed the services described in the documentation, reviewed and edited the documentation which was dictated to the scribe in my presence, and it accurately records my words and actions. I personally performed the services described in the documentation, reviewed and edited the documentation which was dictated to the scribe in my presence, and it accurately records my words and actions.
[2018-09-20] MEDS ORDERED: FENTANYL 50 MCG/HR PATCH.TD72 TD SCH (10:00)
--- NOTE | 2018-09-26 09:33 | PDOC H&P ---
History of Present Illness Admission Date/PCP: Burt BRODY Patient complains of: Pleuritic chest pain. Thrombocytopenia. Anemia. Neutropenia History of Present Illness: LILIA CHAPA is a 58 year old female Past Medical History Cardiac Medical History: Reports: Hyperlipidema, Hypertension Denies: Coronary Artery Disease, Myocardial Infarction Pulmonary Medical History: Denies: Asthma, Bronchitis, Chronic Obstructive Pulmonary Disease (COPD), Pneumonia Neurological Medical History: Denies: Seizures Endocrine Medical History: Reports: Diabetes Mellitus Type 2 Musculoskeltal Medical History: Denies: Arthritis Hematology: Reports: Anemia Past Surgical History Past Surgical History: Reports: Section, Cholecystectomy, Orthopedic Surgery - neck, Other - Partial hemicolectomy for suspicious polyps Social History Lives with: Spouse/Significant other Smoking Status: Current Every Day Smoker Hx Recreational Drug Use: No - Advance Directive Resuscitation Status: Full Code Surrogate healthcare decision maker:: No healthcare proxy documentation on record Family History Family History: None, Reviewed & Not Pertinent Parental Family History Reviewed: Yes Children Family History Reviewed: Yes Sibling(s) Family History Reviewed.: Yes Medication/Allergy Home Medications: Aspirin [Aspirin EC] 81 mg PO QHS 05/21/17 Atorvastatin Calcium [Lipitor 40 mg Tablet] 40 mg PO QHS 05/21/17 Ferrous Sulfate [Ferosul] 325 mg PO QHS 05/21/17 Hydroxyurea 1,000 mg PO Q48H 05/21/17 Insulin Aspart [Novolog Flexpen] 0 unit SUBCUT .SLD SCALE 05/21/17 Insulin Glargine,Hum.rec.anlog [Lantus] 48 unit SQ QHS 05/21/17 Iron/C/Folic Acd/Mv Cmb11/Calc [Ferrex 28 Tablet] 1 each PO QHS 05/21/17 Omeprazole 40 mg PO QHS 05/21/17 Telmisartan [Micardis 80 mg Tablet] 80 mg PO QHS 05/21/17 Hydroxyurea [Hydrea 500 mg Capsule] 500 mg PO Q48H 09/16/18 Allergies/Adverse Reactions: NSAIDS (Non-Steroidal Anti-Inflamma [Nsaids] Allergy (Verified 09/16/18 15:39) Difficulty breathing Review of Systems Constitutional: PRESENT: weakness. ABSENT: headache(s) Eyes: ABSENT: visual disturbances Ears: ABSENT: hearing changes Nose, Mouth, and Throat: ABSENT: mouth pain, sore throat Cardiovascular: ABSENT: chest pain, palpitations Respiratory: ABSENT: hemoptysis Gastrointestinal: ABSENT: constipation, diarrhea Genitourinary: ABSENT: dysuria Neurological: ABSENT: abnormal movements, abnormal speech, focal weakness Psychiatric: ABSENT: anxiety, hallucinations Endocrine: ABSENT: cold intolerance, heat intolerance Hematologic/Lymphatic: ABSENT: easy bleeding Physical Exam Vital Signs: Temp Pulse Resp BP Pulse Ox 103.0 F H 106 H 28 H 124/66 97 09/16/18 12:03 09/16/18 12:00 09/16/18 12:00 09/16/18 12:00 09/16/18 12:00 Intake & Output 09/15/18 09/16/18 09/17/18 06:59 06:59 06:59 Intake Total 0 Balance 0 Weight 68.492 kg General appearance: PRESENT: mild distress, well-developed Eye exam: PRESENT: conjunctiva pale, EOMI. ABSENT: scleral icterus Ear exam: PRESENT: normal external ear exam Mouth exam: PRESENT: moist Neck exam: PRESENT: full ROM. ABSENT: carotid bruit Respiratory exam: PRESENT: clear to auscultation svetlana. ABSENT: rales, rhonchi, symmetrical, wheezes Cardiovascular exam: PRESENT: RRR, +S1, +S2 Vascular exam: PRESENT: pallor GI/Abdominal exam: PRESENT: normal bowel sounds, soft. ABSENT: tenderness Rectal exam: PRESENT: deferred Gentrourinary exam: ABSENT: indwelling catheter Extremities exam: ABSENT: pedal edema Neurological exam: PRESENT: alert, awake, oriented to person, oriented to place, oriented to time, oriented to situation Psychiatric exam: PRESENT: appropriate affect - Reflects her discomfort. ABSENT: agitated Focused psych exam: ABSENT: delusional Results Laboratory Results: 09/16/18 05:04 09/16/18 05:04 09/16/18 09/16/18 09/16/18 05:04 05:04 05:04 WBC 9.8 RBC 2.90 L Hgb 6.1 L Hct 21.5 L MCV 74 L MCH 21.1 L MCHC 28.6 L RDW 25.6 H Plt Count 45 L Seg Neutrophils % Not Reportable Lymphocytes % Not Reportable Monocytes % Not Reportable Eosinophils % Not Reportable Basophils % Not Reportable Absolute Neutrophils Not Reportable Absolute Lymphocytes Not Reportable Absolute Monocytes Not Reportable Absolute Eosinophils Not Reportable Absolute Basophils Not Reportable Retic Count (auto) Absolute Retic Sodium 139.0 Potassium 4.8 Chloride 101 Carbon Dioxide 25 Anion Gap 13 BUN 33 H Creatinine 0.72 Est GFR ( Amer) > 60 Est GFR (Non-Af Amer) > 60 Glucose 407 H* Uric Acid Calcium 8.2 L Phosphorus Iron TIBC % Saturation Ferritin Total Bilirubin 0.6 AST 20 ALT 20 Alkaline Phosphatase 92 C-Reactive Protein 330.4 H Total Protein 5.1 L Albumin 2.8 L Vitamin B12 Folate Urine Color Urine Appearance Urine pH Ur Specific [place] Urine Protein Urine Glucose (UA) Urine Ketones Urine Blood Urine Nitrite Ur Leukocyte Esterase Urine WBC (Auto) Urine RBC (Auto) Blood Type Antibody Screen 09/16/18 09/16/18 09/16/18 05:04 05:04 05:04 WBC RBC Hgb Hct MCV MCH MCHC RDW Plt Count Seg Neutrophils % Lymphocytes % Monocytes % Eosinophils % Basophils % Absolute Neutrophils Absolute Lymphocytes Absolute Monocytes Absolute Eosinophils Absolute Basophils Retic Count (auto) 2.75 Absolute Retic 0.070 Sodium Potassium Chloride Carbon Dioxide Anion Gap BUN Creatinine Est GFR ( Amer) Est GFR (Non-Af Amer) Glucose Uric Acid 6.9 Calcium Phosphorus 4.8 H Iron 13.8 L TIBC 190 L % Saturation 7 Ferritin 659.00 H Total Bilirubin AST ALT Alkaline Phosphatase C-Reactive Protein Total Protein Albumin Vitamin B12 964.0 H Folate > 20.00 Urine Color Urine Appearance Urine pH Ur Specific [place] Urine Protein Urine Glucose (UA) Urine Ketones Urine Blood Urine Nitrite Ur Leukocyte Esterase Urine WBC (Auto) Urine RBC (Auto) Blood Type Antibody Screen 09/16/18 09/16/18 05:50 08:46 WBC RBC Hgb Hct MCV MCH MCHC RDW Plt Count Seg Neutrophils % Lymphocytes % Monocytes % Eosinophils % Basophils % Absolute Neutrophils Absolute Lymphocytes Absolute Monocytes Absolute Eosinophils Absolute Basophils Retic Count (auto) Absolute Retic Sodium Potassium Chloride Carbon Dioxide Anion Gap BUN Creatinine Est GFR ( Amer) Est GFR (Non-Af Amer) Glucose Uric Acid Calcium Phosphorus Iron TIBC % Saturation Ferritin Total Bilirubin AST ALT Alkaline Phosphatase C-Reactive Protein Total Protein Albumin Vitamin B12 Folate Urine Color YELLOW Urine Appearance SLIGHTLY-CLOUDY Urine pH 5.0 Ur Specific [place] 1.020 Urine Protein NEGATIVE Urine Glucose (UA) >=500 H Urine Ketones 20 H Urine Blood NEGATIVE Urine Nitrite NEGATIVE Ur Leukocyte Esterase NEGATIVE Urine WBC (Auto) 7 Urine RBC (Auto) 0 Blood Type A POSITIVE Antibody Screen NEGATIVE 09/16/18 05:04 Troponin I 0.039 Impressions: Chest X-Ray 09/16/18 05:31 IMPRESSION: No evidence of acute intrathoracic disease. No significant change since the prior study. Assessment & Plan - Diagnosis (1) Neutropenia Qualifiers: Neutropenia type: unspecified Qualified Code(s): D70.9 - Neutropenia, unspecified Is this a current diagnosis for this admission?: Yes Plan: Most likely due to an underlying malignancy. The exact etiology is unknown. Hematology/oncology consult is obtained. Dr. Sifuentes is going to perform a bone marrow biopsy. She will then speak to oncology at a tertiary care facility for possible transfer for additional diagnoses and treatment plan. As discussed with her I have started the patient on broad-spectrum antibiotic therapy for her severe neutropenia. She will also be on neutropenic precautions. (2) Anemia Qualifiers: Anemia type: iron deficiency Iron deficiency anemia type: unspecified iron deficiency Qualified Code(s): D50.9 - Iron deficiency anemia, unspecified Is this a current diagnosis for this admission?: Yes Plan: Iron studies revealed very low serum iron. The exact etiology of the iron deficiency is unknown initiate iron replenishment. (3) Thrombocytopenia Is this a current diagnosis for this admission?: Yes Plan: The patient has a history of thrombocytosis. This was diagnosed by bone marrow biopsy several years ago. She has been on hydroxyurea. This will be held at this time. We will monitor her platelet counts. There may be additional information gleaned from the bone marrow biopsy. Defer to Dr. Schaeffer for specific treatments. (4) Diabetes mellitus Qualifiers: Diabetes mellitus type: type 2 Diabetes mellitus extermination inspector insulin use: with extermination inspector use Diabetes mellitus complication status: without complication Qualified Code(s): E11.9 - Type 2 diabetes mellitus without complications; Z79.4 - medical terminologist (current) use of insulin Is this a current diagnosis for this admission?: Yes Plan: Will institute Accu-Cheks and sliding scale. Will adjust regimen based on appetite and sliding scale requirements. (5) Chest pain Is this a current diagnosis for this admission?: Yes Plan: Appears to be noncardiac. Multiple physiologic stress hours present. There was no obvious infiltrate on x-ray to suggest any type of pleuritic pain. Will treat with analgesia at this time. - Time Time Spent: 50 to 70 Minutes Medications reviewed and adjusted accordingly: Yes Anticipated discharge: [facility] - Inpatient Certification Based on my medical assessment, after consideration of the patient's comorbidities, presenting symptoms, or acuity I expect that the services needed warrant INPATIENT care.: Yes I certify that my determination is in accordance with my understanding of Medicare's requirements for reasonable and necessary INPATIENT services [42 CFR 412.3e].: Yes Medical Necessity: Need For IV Fluids, Need for IV Antibiotics, Risk of Complication if Not Cared For in Hospital
== END 2018-09-17 16:52 | disposition short-term general hospital (02) | DRG 809 ==
LOC: ER 04:59 → EH 12:54 → 4S 19:31
PROVIDERS: ADMIT Hospitalist; ATTEND Hospitalist
PROC: 07DR3ZX Extraction of Iliac Bone Marrow, Percutaneous Approach, Diagnostic (ICD-10-PCS; principal; 2018-09-16)
PROC: 30233N1 Transfusion of Nonautologous Red Blood Cells into Peripheral Vein, Percutaneous Approach (ICD-10-PCS; 2018-09-16)
PROC: 30233N1 Transfusion of Nonautologous Red Blood Cells into Peripheral Vein, Percutaneous Approach (ICD-10-PCS; 2018-09-17)
DX: D61.818 Other pancytopenia (principal); D69.3 Immune thrombocytopenic purpura; D64.9 Anemia, unspecified; E78.5 Hyperlipidemia, unspecified; I10 Essential (primary) hypertension; E11.9 Type 2 diabetes mellitus without complications; Z79.82 Long term (current) use of aspirin; Z79.4 Long term (current) use of insulin; Z88.8 Allergy status to other drugs, medicaments and biological substances; R07.9 Chest pain, unspecified; R50.9 Fever, unspecified; F17.210 Nicotine dependence, cigarettes, uncomplicated
CPT/HCPCS: 36415; 36430; 71045; 80048; 80053; 81001; 82607; 82728; 82746; 82962; 83036; 83540; 83550; 83615; 84100; 84484; 84550; 85025; 85045; 85384; 85610; 85652; 85730; 86140; 86430; 86850; 86900; 86901; 86920; 87040; 87086; 93005; 93010; 96374; 96375; 96376; 99285; J1170; J1815; J2185; J2270; J2405; J2920; J2930; J3010; J3370; J3490; J7050; P9016